=== PATIENT | female | born 1990 | race Caucasian/White ===

== ENCOUNTER 2021-03-17 12:07 | Outpatient (CLI) | payer BC ==
[~2021-03-17] VITALS: Ht 152.4 cm; Wt 83.2 kg
[2021-03-17 12:30] VITALS: BP 125/81; PULSE 88
--- NOTE | 2021-03-17 12:30 | NUR ---
Amnio test done, negative. Small amount of white color drainage noted with check.
[2021-03-17] MEDS ORDERED: ASPIRIN 81M81 MG/TA2 PO (12:48)
[2021-03-17 13:00] VITALS: BP 118/70; PULSE 87
[2021-03-17] MEDS ORDERED: PRENATAL TABLET PO (13:02)
--- NOTE | 2021-03-17 13:30 | NUR ---
Discharge instructions given, verbalizes understanding. Dismissed to home with family, alert, ambulatory, stable.
== END 2021-03-17 13:30 | disposition home or self-care (01) ==
LOC: LDRO 12:07
DX: O42.90 Premature rupture of membranes, unspecified as to length of time between rupture and onset of labor, unspecified weeks of gestation (principal); Z3A.00 Weeks of gestation of pregnancy not specified

== ENCOUNTER 2021-04-01 17:31 | Outpatient (CLI) | payer BC ==
[~2021-04-01] VITALS: Ht 149.9 cm; Wt 85.9 kg
[~2021-04-01 17:31] MED LIST: ASPIRIN 81M81 MG/TA2 PO; PRENATAL TABLET PO
--- NOTE | 2021-04-01 17:35 | NUR ---
PATIENT HERE FROM HOME FOR LABOR CHECK. PATIENT CHANGED INTO GOWN, ON EFM, VITALS OBTAINED, SVE PREFORMED BY THIERNO RASMUSSEN. KELINT DENIES BLEEDING OR LEAKING OF FLUID. PATIENT STATES SHE WAS SEEN IN THE OFFICE EARLIER, SVE THE SAME PER PRENATALS. CONTRACTIONS HAVE BEEN ABOUT 7 MINS APART ALL DAY.
[2021-04-01 18:00] VITALS: BP 140/86; PULSE 99; TEMP 97.2
--- NOTE | 2021-04-01 18:15 | NUR ---
Report received from THIERNO Pierre. Dr. Durham gave verbal orders if SVE unchanged at 1845 and category 1 FHR tracing, ok to discharge home.
[2021-04-01 18:30] VITALS: BP 141/83; PULSE 88
--- NOTE | 2021-04-01 18:30 | NUR ---
RN to bedside. Pt states that she feels cramping almost all the time and then will have a stronger cramp/contraction about every 10 minutes. Reports lots of movement since arrival on unit. No headaches, blurry vision, or RUQ pain.
[2021-04-01 18:45] VITALS: BP 130/79; PULSE 94
--- NOTE | 2021-04-01 18:45 | NUR ---
SVE unchanged at /-3. Category 1 FHR tracing. Reviewed discharge plan with patient and spouse, verbalized understanding. Discharge instructions given and reviewed. Pt seen ambulating off unit at 1855.
== END 2021-04-01 18:55 | disposition home or self-care (01) ==
LOC: LDRO 17:31 → LDR 17:35 → LDRO 18:55
DX: O26.893 Other specified pregnancy related conditions, third trimester (principal); R25.2 Cramp and spasm; Z3A.38 38 weeks gestation of pregnancy
CPT/HCPCS: OP

== ENCOUNTER 2021-04-04 09:26 | Inpatient (IN) | payer BC ==
[~2021-04-04] VITALS: Ht 149.9 cm; Wt 86.4 kg
[2021-04-04] VITALS (31 sets, daily range): BP systolic 109–157; BP diastolic 57–102; PULSE 69–106; TEMP 97.7–99.4
--- NOTE | 2021-04-04 09:45 | NUR ---
PATIENT ARRIVES TO [facility] AMBULATORY ACCOMPANIED BY . PATIENT DIRECT ADMIT FOR IOL FROM DR ARMENTA OFFICE DUE TO PRE-ECLAMPSIA. PATIENT REPORTS IRREGULAR CONTRACTIONS AND ACTIVE MOVEMENT. DENIES VAGINAL BLEEDING OR LEAKING FLUID. PLAN OF CARE REVIEWED WITH PATIENT AND INCLUDING PLAN FOR PITOCIN AND DR ARMENTA TO AROM LATER THIS MORNING.
[2021-04-04 10:18] LABS: COLLECTION METHOD CLEAN CATCH
[2021-04-04 10:24] LABS: MUCOUS Present /lpf; PH 7 (5-8); SQUAMOUS EPITHELIAL 0-2 /hpf; URINE APPEARANCE Clear; URINE BACTERIA Rare /hpf; URINE BILIRUBIN Negative (NEGATIVE); URINE BLOOD Negative (NEGATIVE); URINE COLOR Yellow; URINE GLUCOSE Negative (NEGATIVE); URINE KETONE Negative (NEGATIVE); URINE LEUKOCYTE ESTERASE Trace (NEGATIVE); URINE NITRATE Negative (NEGATIVE); URINE PROTEIN(semi-quant) Negative (NEGATIVE); URINE RBC 0-2 /hpf; URINE UROBILINOGEN Negative (NEGATIVE); URINE WBC 0-2 /hpf
[2021-04-04 10:55] LABS: BASO % 0.3 % (0.0-2.0); EOS % 0.4 % (0-4.0); GRAN # 9.1 (1.4-6.5); GRAN % 82.1 % (42.2-75.2); HEMATOCRIT 38.9 % (37.0-47.0); HEMOGLOBIN 12.6 g/dl (12.5-16.0); LYMPH # 1.2 (1.2-3.4); LYMPH % 10.6 % (20.0-51.0); MEAN CELL VOLUME 86 fl (80.0-100.0); MEAN CORPUSCULAR HEMOGLOBIN 28 pg (27.0-31.0); MEAN CORPUSCULAR HGB CONC 32 g/dl (33.0-37.0); MEAN PLATELET VOLUME 12.1 fl (7.4-10.4); MONO # 0.7 (0.1-0.6); MONO % 6.2 % (1.7-9.3); PLATELET COUNT 176 K/mm3 (130-400); RED BLOOD COUNT 4.51 M/mm3 (4.10-5.30); REDCELL DISTRIBUTION WIDTH-CV 14.6 % (11.5-14.5)
[2021-04-04 11:03] LABS: ALBUMIN 3.4 gm/dL (3.5-5.0); BILIRUBIN,TOTAL 0.2 mg/dL (0.0-1.0); CALCIUM 9.2 mg/dL (8.4-10.2); CREATININE, serum 0.49 (0.52-1.25); POTASSIUM 4.6 mmol/L (3.4-5.0); TOTAL PROTEIN 6.9 gm/dL (6.4-8.2)
--- NOTE | 2021-04-04 12:00 | NUR ---
UNABLE TO DETERMINE FHR BASELINE FROM 1145 TO 1200 WHILE PATIENT SITTING UP AT EDGE OF BED DURING EPIDURAL PLACEMENT.
--- NOTE | 2021-04-04 14:27 | NUR ---
@ 1427 Dr Contreras called on cell phone and updated on SVE of 6cm/100%, heart rate baseline of 155 with moderate variability and recurrent variable decelerations to kamryn of 80-90s, pitocin remains at 8 mu/min. Dr Contreras states to keep him updated on progress. @ 1432, pt repositioned to left side lying hip release @ 1438, pt repositioned to right side lying hip release @ 1446 SVE done due to pt report of increase in rectal pressure. SVE 9.5cm @ 1548 Dr Contreras called on cell phone and updated on SVE 9.5cm/+2 station. States he is on his way in. @ 1459 SVE done. cervix complete and +2 station @ 1502, Dr Contreras at bedside. updated on complete cervix. Performs SVE and at 1504 patient begins pushing. @ 1506, Dr Contreras out of room and remains on unit. Patient assisted to push in multiple positions due to continued heart rate variable decelerations @ 1607, Dr Contreras arrives back to room for delivery. of male infant @ 1611. Placenta spontaneously delivers @ 1613
--- NOTE | 2021-04-04 15:30 | NUR ---
UNABLE TO DETERMINE HEART RATE BASELINE FROM 1530 TO DELIVERY AT 1613 WHILE PATIENT PUSHING. HEART RATE HIGHS OF 180, LOWS OF 70'S. MODERATE VARIABILITY THROUGHOUT. DR ARMENTA ON UNIT DURING THIS TIME
--- NOTE | 2021-04-04 18:45 | NUR ---
Report recieved. Updated whiteboard and reviewed POC.
[2021-04-05 04:46] VITALS: BP 117/69; PULSE 74; TEMP 97.8
[2021-04-05 07:35] VITALS: BP 123/76; PULSE 77; TEMP 97.8
[2021-04-05] MEDS ORDERED: IBU800 M1 PO (08:17)
[2021-04-05] MEDS ORDERED: PERCOCET 325 MG1 TA2 PO (08:17)
--- NOTE | 2021-04-05 11:07 | NUR ---
Initial visit; Parents thanked Wax Coating Machine Tender for offering congratulations and God's blessings for the of their son. Wax Coating Machine Tender thanked family for choosing [facility].
[2021-04-05 12:18] VITALS: BP 121/71; PULSE 88; TEMP 98
[2021-04-05 16:38] VITALS: BP 123/75; PULSE 75; TEMP 97.7
[2021-04-05 20:40] VITALS: BP 129/81; PULSE 75; TEMP 98.1
[2021-04-06 07:50] VITALS: BP 127/87; PULSE 83; TEMP 97.4
== END 2021-04-06 11:25 | disposition home or self-care (01) | DRG 807 ==
LOC: OB 09:41 → UNDOADMIN 09:41 → LDR 09:41 → OB 19:12
PROVIDERS: ADMIT Obstetrics & Gynecology
PROC: 10E0XZZ Delivery of Products of Conception, External Approach (ICD-10-PCS; principal; 2021-04-04)
PROC: 0KQM0ZZ Repair Perineum Muscle, Open Approach (ICD-10-PCS; 2021-04-04)
PROC: 10907ZC Drainage of Amniotic Fluid, Therapeutic from Products of Conception, Via Natural or Artificial Opening (ICD-10-PCS; 2021-04-04)
DX: O14.04 Mild to moderate pre-eclampsia, complicating childbirth (principal); Z37.0 Single live birth; Z3A.38 38 weeks gestation of pregnancy; O70.1 Second degree perineal laceration during delivery; O26.893 Other specified pregnancy related conditions, third trimester; Z67.41 Type O blood, Rh negative
CPT/HCPCS: J2590; J2791; J7120

== ENCOUNTER 2024-07-14 05:36 | Inpatient (IN) | payer BC ==
[2024-07-14] VITALS (33 sets, daily range): BP systolic 106–136; BP diastolic 52–88; PULSE 62–100; TEMP 97.9–98
[~2024-07-14] VITALS: Ht 149.9 cm; Wt 86.4 kg
[~2024-07-14 05:36] MED LIST changes: +IBU800 M1 PO; +PERCOCET 325 MG1 TA2 PO
[2024-07-14] MEDS ORDERED: LR 1,000 ML IV SCH (06:45)
[2024-07-14] MEDS ORDERED: LR & Oxytocin 500 ML IV SCH (06:45)
[2024-07-14] MEDS ORDERED: LR 1,000 ML IV PRN (06:45)
[2024-07-14 07:11] LABS: BASO # 0.1 K/mm3 (0.0-0.2); BASO % 0.4 % (0.0-2.0); EOS # 0.1 K/mm3 (0.0-0.7); EOS % 1.2 % (0.0-4.0); GRAN # 9.2 K/mm3 (1.4-6.5); GRAN % 79.6 % (42.2-75.2); HEMATOCRIT 37.6 % (37.0-47.0); LYMPH # 1.5 K/mm3 (1.2-3.4); LYMPH % 12.8 % (20.0-51.0); MEAN CELL VOLUME 86 fl (80.0-100.0); MEAN CORPUSCULAR HEMOGLOBIN 30 pg (27-31); MEAN CORPUSCULAR HGB CONC 35 g/dl (33.0-37.0); MEAN PLATELET VOLUME 10.7 fl (7.4-10.4); MONO # 0.6 K/mm3 (0.1-0.6); MONO % 5.5 % (1.7-9.3); PLATELET COUNT 189 K/mm3 (130-400); RED BLOOD COUNT 4.36 M/mm3 (4.10-5.30); REDCELL DISTRIBUTION WIDTH-CV 13.6 % (11.5-14.5)
--- NOTE | 2024-07-14 08:41 | NUR ---
RN DISCUSSES POC WITH PT AND SPOUSE. PT VERBALIZES UNDERSTANDING AND HAS NO QUESTIONS AT THIS TIME.
--- NOTE | 2024-07-14 08:46 | NUR ---
PT REQUESTING EPIDURAL AT THIS TIME. IVFB STARTED, SOCIOLOGY INSTRUCTOR NOTIFIED.
[2024-07-14] MEDS ORDERED: ROPivacaine PF 0.2% 200 ML IV ONE (08:51)
[2024-07-14] MEDS ORDERED: LR 500 ML IV PRN (09:30)
[2024-07-14] MEDS ORDERED: diphenhydrAMINE 25 MG CAP PO PRN (09:30)
[2024-07-14] MEDS ORDERED: LR 1,000 ML IV ONE (09:30)
[2024-07-14] MEDS ORDERED: ePHEDrine 50 MG/10 ML VIAL IV PRN (09:30)
[2024-07-14] MEDS ORDERED: diphenhydrAMINE 50 MG/ML 1 ML VIAL IV PRN (09:30)
[2024-07-14] MEDS ORDERED: Ondansetron 4 MG/2 ML VIAL IV PRN (09:30)
[2024-07-14] MEDS ORDERED: Naloxone 0.4 MG/ML VIAL IV PRN ×2 (09:30→14:15)
--- NOTE | 2024-07-14 09:39 | NUR ---
IVFB CONTINUES, SPA MANAGER EN ROUTE
--- NOTE | 2024-07-14 09:43 | NUR ---
GUEST SPECIALIST BEDSIDE; PT SITTING ON SIDE OF BED FOR EPIDURAL PLACEMENT. RN BEDSIDE
--- NOTE | 2024-07-14 09:46 | NUR ---
PT SEMI FOWLERS WITH HIP WEDGE
--- NOTE | 2024-07-14 10:02 | NUR ---
INTERNATIONAL ACCOUNT MANAGER X1 AND RN X1 BEDSIDE FOR PROCEDURE, PT TOLERATED PLACEMENT WELL
--- NOTE | 2024-07-14 11:53 | NUR ---
RN BEDSIDE DUE TO PT EXPERIENCING SOME LEFT SIDED DISCOMFORT. RN HELPS PT REPOSITION ON LEFT SIDE AND ENCOURAGES PT TO PUSH EPIDURAL BOLUS BUTTON.
[2024-07-14] MEDS ORDERED: Magnes Hydrox (MOM) 80 MG/ML 30 ML CUP PO PRN (13:45)
[2024-07-14] MEDS ORDERED: Loratadine 10 MG TAB PO PRN (13:45)
--- NOTE | 2024-07-14 13:48 | NUR ---
UPDATED ON RECENT SVE COMPLETE WITH PT FEELING LOTS OF VAGINAL PRESSURE. MD STATES HE WILL HEAD TO HOSPITAL FOR DELIVERY OF INFANT. SALES NEGOTIATOR UPDATED.
--- NOTE | 2024-07-14 13:50 | NUR ---
1315 KATHI MCGEE BEDSIDE FOR DELIVERY. RN X3 BEDSIDE. 1318 SPONTANEOUS VAGINAL DELIVERY OF VIABLE FEMALE INFANT. PT TOLERATED DELIVERY WELL.
[2024-07-14] MEDS ORDERED: Witch Hazel 50% Pads Bulk TUB TP PRN (14:15)
[2024-07-14] MEDS ORDERED: Ibuprofen 800 MG TAB PO SCH (14:15)
[2024-07-14] MEDS ORDERED: Acetaminophen 500 MG TAB PO SCH (14:15)
[2024-07-14] MEDS ORDERED: Tdap Vaccine 0.5 ML SYRINGE IM SCH (14:15)
[2024-07-14] MEDS ORDERED: Phenylephrine/Mineral Oil/Petrolatum 57 GM TUBE RC PRN (14:15)
[2024-07-14] MEDS ORDERED: oxyCODONE 5 MG TAB PO PRN (14:15)
[2024-07-14] MEDS ORDERED: Measles/Mumps/Rubella Virus Vaccine Live w Diluent 0.5 ML VIAL SQ SCH (14:15)
[2024-07-14] MEDS ORDERED: Mag/Al Hydrox/Simeth Susp 30 ML CUP PO PRN (14:15)
--- NOTE | 2024-07-14 15:35 | NUR ---
0630 PT ARRIVES ON UNIT FOR INDUCTION OF LABOR. PT DENIES ANY LOF, VB, DFM, STRONG/REGULAR CTX OR ANY COMPLAINTS AT THIS TIME. PT STATES SHE WAS 2-3CM IN OFFICE LAST THURSDAY. POC DISCUSSES WITH PT AND AND BOTH VERBALIZED UNDERSTANDING.
--- NOTE | 2024-07-14 15:36 | NUR ---
1530 RN ASSISTS PT TO BATHROOM. PT AMBULATES WELL WITH NO ASSISTANCE NEEDED. PT VOIDED AND WES CARE PERFORMED BY RN. GOWN CHANGED AND PT MOVED TO ROOM.
--- NOTE | 2024-07-14 16:00 | NUR ---
THIS RN RECEIVED REPORT FROM BANDAR PA. THIS RN ASSUMES CARE.
[2024-07-14] MEDS ORDERED: Sennosides/Docusate 8.6-50 MG TAB PO SCH (17:00)
[2024-07-14] MEDS ORDERED: Rho(D) Imm Globulin 1,500 UNITS (300 MCG)/2 ML SYRINGE IV\\IM SCH (19:00)
[2024-07-14] MEDS ORDERED: traZODone 50 MG TAB PO PRN (21:00)
[2024-07-15 02:00] VITALS: BP 128/70; PULSE 72
[2024-07-15 07:00] VITALS: BP 124/76; PULSE 77; TEMP 98
[2024-07-15] MEDS ORDERED: ROXICODONE 55 MG/TAB PO (08:17)
[2024-07-15] MEDS ORDERED: MOTRIN 800800 MG/TAB PO (08:17)
--- NOTE | 2024-07-15 09:30 | NUR ---
Initial visit; Parents thanked Fisher Pot for looking in on them and offering congratulations and God's blessings for the of their daughter. Fisher Pot thanked family for choosing [facility].
== END 2024-07-15 14:40 | disposition home or self-care (01) | DRG 807 ==
LOC: OB 05:36 → LDR 06:21 → OB 11:54
PROVIDERS: ADMIT Obstetrics & Gynecology
PROC: 10E0XZZ Delivery of Products of Conception, External Approach (ICD-10-PCS; principal; 2024-07-14)
PROC: 0KQM0ZZ Repair Perineum Muscle, Open Approach (ICD-10-PCS; 2024-07-14)
PROC: 10907ZC Drainage of Amniotic Fluid, Therapeutic from Products of Conception, Via Natural or Artificial Opening (ICD-10-PCS; 2024-07-14)
PROC: 0UQMXZZ Repair Vulva, External Approach (ICD-10-PCS; 2024-07-14)
PROC: 3E033VJ Introduction of Other Hormone into Peripheral Vein, Percutaneous Approach (ICD-10-PCS; 2024-07-14)
DX: O70.1 Second degree perineal laceration during delivery (principal); Z37.0 Single live birth; O71.82 Other specified trauma to perineum and vulva; Z3A.39 39 weeks gestation of pregnancy
CPT/HCPCS: J2590; J2791; J2795; J7120